=== PATIENT | male | born 1985 | race Caucasian/White ===

== ENCOUNTER 2019-08-20 20:10 | Emergency (ER) | payer OTHER ==
[~2019-08-20] VITALS: Ht 170.2 cm; Wt 61.2 kg
[2019-08-20] MEDS ORDERED: HYDROMORPHONE 1 MG/1 ML DISP.SYRIN IV ONE (20:30)
[2019-08-20] MEDS ORDERED: ONDANSETRON 4 MG/2 ML VIAL IV ONE (20:30)
[2019-08-20] MEDS ORDERED: PANTOPRAZOLE SODIUM 40 MG VIAL IV ONE (20:30)
[2019-08-20] MEDS ORDERED: IV NORMAL SALINE 1000 ML BAG IV ONE (20:30)
[2019-08-20] MEDS ORDERED: PANTOPRAZOLE SODIUM 40 MG VIAL ONE (20:35)
[2019-08-20] MEDS ORDERED: ONDANSETRON 4 MG/2 ML VIAL ONE (20:35)
[2019-08-20] MEDS ORDERED: HYDROMORPHONE 1 MG/1 ML DISP.SYRIN ONE (20:35)
[2019-08-20 20:45] LABS: BASOPHILS # (AUTO) 0.1 K/uL (0.0-8.0); BASOPHILS % (AUTO) 0.7 % (0.0-2.0); EOSINOPHILS # (AUTO) 0.2 K/uL (0.0-0.7); EOSINOPHILS % (AUTO) 1.7 % (0.0-7.0); HEMATOCRIT 41.5 % (36.7-47.1); HEMOGLOBIN 14.6 g/dL (12.5-16.3); LYMPHOCYTES # (AUTO) 3.9 K/uL (20.0-40.0); LYMPHOCYTES % (AUTO) 36.1 % (20.5-51.5); MEAN CORPUSCULAR HEMOGLOBIN 30.8 uug (23.8-33.4); MEAN CORPUSCULAR HGB CONC 35 g/dL (32.5-36.3); MEAN CORPUSCULAR VOLUME 87.5 fL (73.0-96.2); MONOCYTES # (AUTO) 0.9 K/uL (2.0-10.0); MONOCYTES % (AUTO) 8.1 % (0.0-11.0); NEUTROPHILS # (AUTO) 5.7 K/uL (1.8-8.9); NEUTROPHILS % (AUTO) 53.4 % (38.5-71.5); PLATELET COUNT (AUTO) 257 K/uL (152-348); RED BLOOD CELL COUNT(AUTO) 4.75 MIL/uL (4.06-5.63); WHITE BLOOD COUNT (AUTO) 10.7 K/uL (3.6-10.2)
[2019-08-20 20:54] LABS: CARBON DIOXIDE 27 mmol/L (21-32); CHLORIDE 104 mmol/L (98-107); CREATININE 1.1 mg/dL (0.6-1.3); GLUCOSE 99 mg/dL (74-106); POTASSIUM 3.7 mmol/L (3.5-5.1); UREA NITROGEN, BLOOD 15 mg/dL (7-18)
[2019-08-20 20:57] LABS: LIPASE 148 U/L (73-393)
[2019-08-20 20:59] LABS: ALANINE AMINOTRANSFERASE 30 U/L (16-63); ALKALINE PHOSPHATASE 60 U/L (50-136); ASPARTATE AMINOTRANSFERASE 16 U/L (15-37); BILIRUBIN,DIRECT < 0.1 mg/dL (0.0-0.2); BILIRUBIN,TOTAL 0.2 mg/dL (0.2-1.0); TOTAL PROTEIN, SERUM 7.8 g/dL (6.4-8.2)
[2019-08-20 21:14] LABS: *BILIRUBIN,URIN NEGATIVE (NEGATIVE); *BLOOD, URINE NEGATIVE (NEGATIVE); *CLARITY,URINE CLEAR (CLEAR); *COLOR,URINE YELLOW (YELLOW); *KETONES,URINE NEGATIVE (NEGATIVE); *UROBILINOGEN,URINE 0.2 E.U./dl (NORMAL); LEUKOCYTE ESTERASE ,URINE NEGATIVE (NEGATIVE); NITRITE, URINE NEGATIVE (NEGATIVE); PH,URINE 5.5 (5.0-8.0); UGLUCOSE NEGATIVE (NEGATIVE)
--- NOTE | 2019-08-20 21:49 | NUR ---
Patient discharged to home in stable condition. Written and verbal after care instructions given. Stressed follow up or return to ER for worsening s/s. Pt left ER in stable condition. Instructed pt not to drive home, have someone pick him up. Patient verbalizes understanding of instructions. Pt states he feels better. Denies any more abdominal pain or n/v.
--- NOTE | 2019-08-20 21:49 | NUR ---
IV removed. Catheter intact and site benign. Pressure and 4x4 gauze applied to site. No bleeding noted.
[2019-08-20 21:50] VITALS: BP 124/72
== END 2019-08-20 21:50 | disposition home or self-care (01) ==
LOC: ER 20:26
DX: K29.70 Gastritis, unspecified, without bleeding (principal)
CPT/HCPCS: 36415; 74176; 80048; 80076; 81001; 83690; 85025; 85730; 96361; 96374; 96375; 99284; C9113; J1170; J2405; A4663; J7030

== ENCOUNTER 2024-01-18 15:05 | Emergency (ER) | payer OTHER ==
[~2024-01-18] VITALS: Ht 170.2 cm; Wt 72.6 kg
[2024-01-18] MEDS ORDERED: HYDR-3980 PO (16:48)
[2024-01-18] MEDS ORDERED: METH-807 PO (16:48)
[2024-01-18 19:00] VITALS: BP 130/85; O2SAT 99
== END 2024-01-18 19:01 | disposition home or self-care (01) ==
LOC: ER 15:05
DX: M54.6 Pain in thoracic spine (principal); S29.012A Strain of muscle and tendon of back wall of thorax, initial encounter; S16.1XXA Strain of muscle, fascia and tendon at neck level, initial encounter; Z87.19 Personal history of other diseases of the digestive system; V43.52XA Car driver injured in collision with other type car in traffic accident, initial encounter; Y93.89 Activity, other specified; Y92.488 Other paved roadways as the place of occurrence of the external cause; Y99.8 Other external cause status
CPT/HCPCS: 72072; A4606; A4663